=== PATIENT | male | born 1965 | race Caucasian/White ===

== ENCOUNTER 2021-02-08 10:57 | Emergency (ER) | payer OTHER ==
[2021-02-08 12:05] LABS: BASOPHIL 0.8 % (0-2); HCT 41.6 % (42.0-52.0); HGB 14.5 g/dl (13.2-18.0); LYMPHOCYTE 13.4 % (15-48); MCH 29.5 pg (25.0-31.0); MCHC 34.9 g/dL (32.0-36.0); MCV 84.7 fL (78.0-100.0); MONOCYTE 10.7 % (0-12); NEUTROPHIL 71.7 % (41-80); NRBC 0; PLT 152 K/uL (150-400); RBC 4.91 M/uL (4.70-6.00); RDW 12.9 % (11.5-14.0); WBC 5.3 K/uL (4.0-10.5)
[2021-02-08 12:25] LABS: ALBUMIN 3.5 g/dL (3.4-5.0); BILIRUBIN - TOTAL 0.8 mg/dL (0.2-1.0); BUN/CREAT RATIO (CALC) 15.6 RATIO; CREATININE 1.09 mg/dL (0.67-1.17); POTASSIUM 4.1 mmol/L (3.5-5.1); TOTAL PROTEIN 6.5 g/dL (6.4-8.2)
[2021-02-08 12:56] LABS: FLU B NEGATIVE B (NEGATIVE B)
[2021-02-08] MEDS ORDERED: VENTOLIN HFA IN18 GM INH (14:09)
[2021-02-08] MEDS ORDERED: PREDNISONE 20MG20 MG PO (14:09)
== END 2021-02-08 14:20 | disposition home or self-care (01) ==
LOC: FER 10:57
PROVIDERS: Emergency Medicine
DX: J98.01 Acute bronchospasm (principal); B34.9 Viral infection, unspecified; I10 Essential (primary) hypertension; I25.2 Old myocardial infarction; F17.200 Nicotine dependence, unspecified, uncomplicated; Z20.822 Contact with and (suspected) exposure to COVID-19; Z86.73 Personal history of transient ischemic attack (TIA), and cerebral infarction without residual deficits
CPT/HCPCS: 36415; 80053; 85025; 87804; 87899; 99283; U0002

== ENCOUNTER 2021-03-05 21:11 | Emergency (ER) | payer OTHER ==
[~2021-03-05 21:11] MED LIST: PREDNISONE 20MG20 MG PO; VENTOLIN HFA IN18 GM INH
[2021-03-05 21:56] LABS: BASOPHIL 0.7 % (0-2); EOSINOPHIL 0.6 % (0-5); HCT 42.4 % (42.0-52.0); HGB 14.5 g/dl (13.2-18.0); LYMPHOCYTE 8.2 % (15-48); MCH 29.4 pg (25.0-31.0); MCHC 34.2 g/dL (32.0-36.0); MONOCYTE 1.9 % (0-12); MPV 9.9 fL (6.0-9.5); NEUTROPHIL 88.3 % (41-80); NRBC 0; PLT 141 K/uL (150-400); RBC 4.93 M/uL (4.70-6.00); RDW 12.8 % (11.5-14.0); WBC 6.8 K/uL (4.0-10.5)
[2021-03-05 22:06] LABS: INR 1.06 (0.9-1.2); PROTHROMBIN TIME 13.1 SECONDS (11.4-13.6); PTT 27.9 SECONDS (22.2-34.7)
[2021-03-05 22:13] LABS: ALBUMIN 3.7 g/dL (3.4-5.0); BILIRUBIN - TOTAL 0.4 mg/dL (0.2-1.0); CREATININE 1.08 mg/dL (0.67-1.17); GLOBULIN (CALCULATION) 3.1 g/dL; POTASSIUM 3.9 mmol/L (3.5-5.1); TOTAL PROTEIN 6.8 g/dL (6.4-8.2)
[2021-03-05 22:25] LABS: CKMB <0.5 ng/mL (0.0-3.6)
== END 2021-03-06 01:40 | disposition home or self-care (01) ==
LOC: FER 21:11
PROVIDERS: Student in an Organized Health Care Education/Training Program
DX: G45.9 Transient cerebral ischemic attack, unspecified (principal); I25.2 Old myocardial infarction; I10 Essential (primary) hypertension; Z86.73 Personal history of transient ischemic attack (TIA), and cerebral infarction without residual deficits
CPT/HCPCS: 36415; 70450; 71045; 80053; 82550; 82553; 83874; 84484; 85025; 85610; 85730; 93005; Q9967

== ENCOUNTER 2021-05-07 18:34 | Emergency (ER) | payer OTHER ==
[2021-05-07 19:29] LABS: BASOPHIL 0.6 % (0-2); EOSINOPHIL 0.3 % (0-5); HCT 40.6 % (42.0-52.0); HGB 13.7 g/dl (13.2-18.0); LYMPHOCYTE 9.6 % (15-48); MCHC 33.7 g/dL (32.0-36.0); MCV 85.8 fL (78.0-100.0); MONOCYTE 5.2 % (0-12); MPV 10.1 fL (6.0-9.5); NEUTROPHIL 84.1 % (41-80); NRBC 0; PLT 171 K/uL (150-400); RBC 4.73 M/uL (4.70-6.00); RDW 12.8 % (11.5-14.0)
[2021-05-07 19:40] LABS: LACTIC ACID 2.9 mmol/L (0.4-1.9)
[2021-05-07 19:41] LABS: ALBUMIN 3.9 g/dL (3.4-5.0); ALKALINE PHOSHATASE 86 U/L (46-116); ALT 37 U/L (16-63); AST 36 U/L (15-37); BILIRUBIN - TOTAL 0.6 mg/dL (0.2-1.0); BUN 10 mg/dL (7-18); CHLORIDE 105 mmol/L (98-107); CO2 (BICARBONATE) 24 mmol/L (21-32); CPK 813 U/L (39-308); DILANTIN (PHENYTOIN) 0.5 ug/mL (10.0-20.0); GLOBULIN (CALCULATION) 3.3 g/dL; GLUCOSE 114 mg/dL (74-106); MAGNESIUM 2.1 mg/dL (1.8-2.4); PHENOBARBITAL <1.0 ug/mL (15.0-40.0); PHOSPHORUS 2.3 mg/dL (2.6-4.7); POTASSIUM 3.3 mmol/L (3.5-5.1); TOTAL PROTEIN 7.2 g/dL (6.4-8.2)
[2021-05-07 19:45] LABS: DEPAKENE/VALPROIC ACID <3.0 ug/mL (50.0-100.0)
[2021-05-07 23:37] LABS: BILIRUBIN NEGATIVE (NEGATIVE); BLOOD NEGATIVE Ery/uL (NEGATIVE); CLARITY CLEAR (CLEAR); COLOR YELLOW (YELLOW); GLUCOSE (U) NORMAL (NORMAL); LEUKOCYTES NEGATIVE Leu/uL (NEGATIVE); NITRITE NEGATIVE (NEGATIVE); PROTEIN NEGATIVE (NEGATIVE); SPECIFIC GRAVITY 1.015 (1.001-1.030); UROBILINOGEN 0.2 mg/dL (0.2-1.0); pH 6.5 (5.0-9.0)
[2021-05-07 23:41] LABS: AMPHETAMINES NEGATIVE (NEGATIVE); BARBITURATES NEGATIVE (NEGATIVE); ECSTASY (MDMA) NEGATIVE (NEGATIVE); MARIJUANA (THC) NEGATIVE (NEGATIVE); METHADONE NEGATIVE (NEGATIVE); OPIATES NEGATIVE (NEGATIVE); OXYCODONE NEGATIVE (NEGATIVE)
== END 2021-05-08 01:40 | disposition other institution (70) ==
LOC: FER 18:34
PROVIDERS: Emergency Medicine Emergency Medical Services
DX: R56.9 Unspecified convulsions (principal); R53.1 Weakness; I25.2 Old myocardial infarction; I10 Essential (primary) hypertension; F17.210 Nicotine dependence, cigarettes, uncomplicated; Z86.73 Personal history of transient ischemic attack (TIA), and cerebral infarction without residual deficits
CPT/HCPCS: 36415; 70450; 71045; 72125; 73552; 73590; 80053; 80164; 80184; 80185; 80305; 81003; 82550; 83605; 83735; 84100; 85025; 93005; G0480; J1953; J2060; J3360; J7120

== ENCOUNTER 2021-07-26 17:20 | Emergency (ER) | payer OTHER ==
[2021-07-26 19:42] LABS: ALBUMIN 3.7 g/dL (3.4-5.0); BILIRUBIN - TOTAL 0.4 mg/dL (0.2-1.0); BUN/CREAT RATIO (CALC) 7.9 RATIO; CREATININE 1.01 mg/dL (0.67-1.17); GLOBULIN (CALCULATION) 2.6 g/dL; POTASSIUM 3.8 mmol/L (3.5-5.1); TOTAL PROTEIN 6.3 g/dL (6.4-8.2)
[2021-07-26 19:50] LABS: HCT 42.3 % (42.0-52.0); HGB 14.3 g/dl (13.2-18.0); MCH 28.1 pg (25.0-31.0); MCHC 33.8 g/dL (32.0-36.0); MCV 83.3 fL (78.0-100.0); MPV 9.9 fL (6.0-9.5); RBC 5.08 M/uL (4.70-6.00); RDW 12.6 % (11.5-14.0); WBC 8.8 K/uL (4.0-10.5)
[2021-07-26] MEDS ORDERED: TAB-A-VITE TA400 MC1 PO (21:16)
[2021-07-26] MEDS ORDERED: TRILEPTAL150 MG PO (21:16)
[2021-07-26] MEDS ORDERED: VIMPAT200 MG PO ×2 (21:16→21:19)
== END 2021-07-26 22:16 | disposition home or self-care (01) ==
LOC: FER 17:20
PROVIDERS: Emergency Medicine
DX: G40.909 Epilepsy, unspecified, not intractable, without status epilepticus (principal); I25.2 Old myocardial infarction; I10 Essential (primary) hypertension; F17.200 Nicotine dependence, unspecified, uncomplicated; Z86.73 Personal history of transient ischemic attack (TIA), and cerebral infarction without residual deficits
CPT/HCPCS: 36415; 80053; J1953

== ENCOUNTER 2021-11-04 20:05 | Emergency (ER) | payer OTHER ==
[~2021-11-04 20:05] MED LIST changes: +TAB-A-VITE TA400 MC1 PO; +TRILEPTAL150 MG PO; +VIMPAT200 MG PO
[2021-11-04 20:43] LABS: BASOPHIL 0.4 % (0-2); EOSINOPHIL 1.6 % (0-5); HCT 47.6 % (42.0-52.0); HGB 16.5 g/dl (13.2-18.0); LYMPHOCYTE 15.4 % (15-48); MCH 29.6 pg (25.0-31.0); MCHC 34.7 g/dL (32.0-36.0); MCV 85.5 fL (78.0-100.0); MONOCYTE 7.7 % (0-12); MPV 10.3 fL (6.0-9.5); NEUTROPHIL 74.6 % (41-80); NRBC 0; PLT 171 K/uL (150-400); RBC 5.57 M/uL (4.70-6.00); RDW 12.5 % (11.5-14.0); WBC 11.2 K/uL (4.0-10.5)
[2021-11-04 21:05] LABS: LACTIC ACID 0.9 mmol/L (0.4-1.9)
[2021-11-04 21:12] LABS: ALBUMIN 4.1 g/dL (3.4-5.0); BILIRUBIN - TOTAL 0.7 mg/dL (0.2-1.0); BUN/CREAT RATIO (CALC) 14.1 RATIO; CREATININE 0.85 mg/dL (0.67-1.17); GLOBULIN (CALCULATION) 2.9 g/dL; POTASSIUM 3.4 mmol/L (3.5-5.1)
== END 2021-11-05 01:00 | disposition home or self-care (01) ==
LOC: FER 20:05
PROVIDERS: Emergency Medicine
DX: I48.91 Unspecified atrial fibrillation (principal); I10 Essential (primary) hypertension; F17.200 Nicotine dependence, unspecified, uncomplicated; Z86.73 Personal history of transient ischemic attack (TIA), and cerebral infarction without residual deficits; Z79.82 Long term (current) use of aspirin; Z79.899 Other long term (current) drug therapy; Z20.822 Contact with and (suspected) exposure to COVID-19
CPT/HCPCS: 36415; 71045; 71275; 80053; 83605; 84443; 84484; 85025; 85379; 87040; 93005; J2543; J7030; Q9967; U0002

== ENCOUNTER 2021-11-30 00:46 | Emergency (ER) | payer OTHER ==
[2021-11-30] MEDS ORDERED: TRILEPTAL150 MG PO (03:27)
[2021-11-30] MEDS ORDERED: VIMPAT200 MG PO (03:27)
== END 2021-11-30 03:59 | disposition home or self-care (01) ==
LOC: FER 00:46
DX: G40.409 Other generalized epilepsy and epileptic syndromes, not intractable, without status epilepticus (principal); F17.200 Nicotine dependence, unspecified, uncomplicated; Z79.899 Other long term (current) drug therapy
CPT/HCPCS: J1953

== ENCOUNTER 2022-07-08 07:49 | Emergency (ER) | payer OTHER ==
[2022-07-08 08:50] LABS: BASOPHIL 0.5 % (0-2); EOSINOPHIL 0 % (0-5); HCT 40.7 % (42.0-52.0); HGB 14.1 g/dl (13.2-18.0); MCH 30.3 pg (25.0-31.0); MCHC 34.6 g/dL (32.0-36.0); MCV 87.3 fL (78.0-100.0); MONOCYTE 7.9 % (0-12); MPV 10.1 fL (6.0-9.5); NEUTROPHIL 88.3 % (41-80); NRBC 0; PLT 127 K/uL (150-400); RBC 4.66 M/uL (4.70-6.00); RDW 12.8 % (11.5-14.0); WBC 6.6 K/uL (4.0-10.5)
[2022-07-08 08:59] LABS: ALBUMIN 3.9 g/dL (3.4-5.0); BILIRUBIN - TOTAL 0.7 mg/dL (0.2-1.0); BUN/CREAT RATIO (CALC) 10.7 RATIO; CREATININE 1.03 mg/dL (0.67-1.17); GLOBULIN (CALCULATION) 2.8 g/dL; POTASSIUM 4.1 mmol/L (3.5-5.1); TOTAL PROTEIN 6.7 g/dL (6.4-8.2)
== END 2022-07-08 11:45 | disposition home or self-care (01) ==
LOC: FER 07:49
PROVIDERS: Emergency Medicine
DX: G40.409 Other generalized epilepsy and epileptic syndromes, not intractable, without status epilepticus (principal); I10 Essential (primary) hypertension; F17.210 Nicotine dependence, cigarettes, uncomplicated; Z86.73 Personal history of transient ischemic attack (TIA), and cerebral infarction without residual deficits; Z79.82 Long term (current) use of aspirin; Z79.899 Other long term (current) drug therapy; Z28.310 Unvaccinated for COVID-19
CPT/HCPCS: 36415; 70450; 80053; 85025; J1953; J7030